=== PATIENT | male | born 1950 | race Caucasian/White ===

== ENCOUNTER 2022-08-14 18:44 | Inpatient (IN) | payer OTHER, MEDICARE ==
[~2022-08-14] VITALS: Ht 175.3 cm; Wt 76.2 kg
[2022-08-14 19:22] VITALS: BP_SYST 132
--- NOTE | 2022-08-14 19:55 | NUR ---
Placed in room 02 . Placed on weight loss consultant, blood pressure machine and pulse oximeter. To gown for exam. Side rails up. Report given to BALJIT SHARMA.
--- NOTE | 2022-08-14 19:58 | NUR ---
Received pt in be 2, A&OX4, NAD. C/o of flank pain, pt reported to have multiple kidney stones.
--- NOTE | 2022-08-14 19:59 | NUR ---
ER Dr. Bourne at bedside examining patient.
[2022-08-14 20:40] LABS: BASOPHILS % (AUTO) 0.5 % (0.0-2.0); EOSINOPHILS # (AUTO) 0.3 K/uL (0.0-0.4); EOSINOPHILS % (AUTO) 2.6 % (0.0-4.0); HEMOGLOBIN 12.8 g/dL (14.0-18.0); LYMPHOCYTES # (AUTO) 2.3 K/uL (1.0-5.5); LYMPHOCYTES % (AUTO) 22.7 % (20.5-51.5); MEAN CORPUSCULAR HEMOGLOBIN 31 pg (27-31); MEAN CORPUSCULAR HGB CONC 34 % (32-36); MEAN CORPUSCULAR VOLUME 90 fL (79.0-98.0); MONOCYTES # (AUTO) 0.7 K/uL (0.0-1.0); MONOCYTES % (AUTO) 6.9 % (1.7-9.3); NEUTROPHILS % (AUTO) 67.3 % (40.0-70.0); PLATELET COUNT (AUTO) 224 K/uL (130-430); RED CELL DISTRIBUTION WIDTH 14.5 % (9.0-15.0); WHITE BLOOD COUNT (AUTO) 10.3 K/uL (4.8-10.8)
[2022-08-14 20:41] LABS: CALCIUM 8.7 mg/dL (8.4-11.0); CREATININE 2.13 mg/dL (0.55-1.30)
[2022-08-14 20:54] LABS: ALBUMIN 3.8 g/dL (3.4-4.8); TOTAL BILIRUBIN 0.4 mg/dL (0.0-1.0)
[2022-08-14 21:23] LABS: BILIRUBIN,URINE NEGATIVE (NEGATIVE); BLOOD, URINE NEGATIVE (NEGATIVE); CLARITY/URINE CLEAR (CLEAR); COLOR,URINE YELLOW (YELLOW); GLUCOSE,URINE NEGATIVE (NEGATIVE); KETONES,URINE NEGATIVE (NEGATIVE); LEUKOCYTE ESTERASE ,URINE NEGATIVE (NEGATIVE); NITRITE, URINE NEGATIVE (NEGATIVE); PH,URINE 5.5 (5.0-8.0); PROTEIN URINE NEGATIVE (NEGATIVE); UROBILINOGEN,URINE 0.2 (0.2-1.0)
--- NOTE | 2022-08-14 22:12 | NUR ---
Admit bed requested Patient will be admitted to care of . Admitted to MED SURG unit. Diagnosis : RENAL KIDNEY STONES & HYDRONEPHROSIS Inpatient :Yes Observation : No Orientation concerns or request close to nursing station : No Covid Status : PND On vent or bipap : NO Isolation requirements : NO Needs a sitter :NO From Home : Yes Requires Dialysis :No Med Rec Completed : PND
--- NOTE | 2022-08-14 22:14 | NUR ---
COVID AND FLU SWABBED AND SENT TO LAB
[2022-08-14] MEDS ORDERED: ONDANSETRON HCL 4 MG/2 ML VIAL IVP PRN ×2 (22:15→23:45)
[2022-08-14] MEDS ORDERED: MORPHINE 4 MG INJ. 4 MG/ML VIAL IVP ONE (22:15)
[2022-08-14] MEDS ORDERED: INSULIN REGULAR, HUMAN 100 UNITS/ML, 3 ML VIAL (humuLIN R) SUBCUT PRN ×2 (22:15→23:45)
[2022-08-14] MEDS ORDERED: TAMSULOSIN HCL 0.4 MG CAP PO ONE (22:15)
[2022-08-14] MEDS ORDERED: MORPHINE 4 MG INJ. 4 MG/ML VIAL IVP PRN ×2 (22:15→23:45)
[2022-08-14] MEDS ORDERED: ONDANSETRON HCL 4 MG/2 ML VIAL IVP ONE (22:15)
[2022-08-14] MEDS ORDERED: NACL 0.9% 1,000 ML IV ONE (22:15)
[2022-08-14] MEDS ORDERED: LOSA100T4 PO (22:53)
[2022-08-14] MEDS ORDERED: ASA81 PO (22:53)
[2022-08-14] MEDS ORDERED: DOXA4TAB3 PO (22:53)
[2022-08-14] MEDS ORDERED: LEVO75CA5 PO (22:53)
[2022-08-14] MEDS ORDERED: ASCO500T20 PO (22:53)
[2022-08-14] MEDS ORDERED: METO-442 PO (22:53)
[2022-08-14] MEDS ORDERED: RABE20TA18 PO (22:53)
[2022-08-14] MEDS ORDERED: SITA100T11 PO (22:53)
[2022-08-14] MEDS ORDERED: VITA400T9 PO (22:53)
[2022-08-14] MEDS ORDERED: ICOS1CAP PO (22:53)
[2022-08-14] MEDS ORDERED: MONT-47 PO (22:53)
[2022-08-14] MEDS ORDERED: VALA500T PO (22:53)
[2022-08-14] MEDS ORDERED: ZINC100T2 PO (22:53)
[2022-08-14] MEDS ORDERED: LIP10 PO (22:53)
[2022-08-14] MEDS ORDERED: VITD400 PO (22:53)
[2022-08-14] MEDS ORDERED: CLOP75TA32 PO (22:53)
--- NOTE | 2022-08-14 22:53 | NUR ---
MED REC COMPLETED, INFORMATION PROVIDED BY FAMILY.
--- NOTE | 2022-08-14 23:12 | NUR ---
COVID RESULT= NEGATIVE
[2022-08-14] MEDS ORDERED: NACL 0.9% 1,000 ML IV SCH (23:30)
--- NOTE | 2022-08-14 23:36 | NUR ---
Patient will be admitted to care of Dr. Thompson. Admitted to MS unit. Will go to room 100 A. Belongings list completed. Complete and up to date summary report printed. SBAR report to be given at bedside BALJIT Sweet with opportunity for questions.
[2022-08-14] MEDS ORDERED: ACETAMINOPHEN 325 MG TABLET PO PRN (23:45)
[2022-08-14] MEDS ORDERED: MORPHINE 2 MG/ML INJ. SYRINGE IVP PRN (23:45)
[2022-08-14] MEDS ORDERED: NALOXONE HCL 0.4 MG/ML AMP (NARCAN) IVP PRN (23:45)
--- NOTE | 2022-08-14 23:45 | NUR ---
ADMISSION NOTE Received patient from ER via gurney. Patient admitted with diagnosis of renal kidney and hydronephrosis. Patient is awake, alert, oriented X4. Pt denies any chest pain,pain,sob,or any acute distress. IV site patent of LAC, flushed well w/ NS. Patient oriented to hospital room, call light, toileting, pain management and safety-teach back done. Patient informed that I (Maddi) will be his nurse and that their room number is 100-B. Personal belongings checked and Belongings List documented. Call light within reach.
[2022-08-15 00:02] VITALS: BP_SYST 151
[2022-08-15 00:09] VITALS: BP_SYST 151
[2022-08-15] MEDS ORDERED: cefTRIAXone 1 GM in D5W 50 ML IV SCH (01:00)
[2022-08-15] MEDS ORDERED: cefTRIAXone 1 GM IVPB PREMIX 50 ML IV ONE (01:44)
[2022-08-15] MEDS: 0.45% NACL 1,000 ML IV SCH ×2 (01:47→10:08)
[2022-08-15 06:35] LABS: ALBUMIN 2.9 g/dL (3.4-4.8); CALCIUM 7.9 mg/dL (8.4-11.0); CREATININE 2.06 mg/dL (0.55-1.30); FREE T4 (FREE THYROXINE) 0.9 ng/dL (0.6-1.6); THYROID STIMULATING HORMONE 4.38 uIu/mL (0.34-4.82); TOTAL BILIRUBIN 0.4 mg/dL (0.0-1.0)
--- NOTE | 2022-08-15 06:45 | NUR ---
CLOSING NOTES; -Pt awakes, resting in bed comfortably. Pt denies any chest pain,pain,sob,or any acute distress. Pt's condition stable. Call light w/in reach. Will endorse to next nurse to cont care.
--- NOTE | 2022-08-15 06:50 | NUR ---
NOTES; PAGED Saleem CHAND CONSULT REGARDING RENAL KIDNEY STONE/HYDRONEPHROSIS [phone], NO ANSWER LEFT MSG TO CALLBACK, WILL ENDORSE TO DAY SHIFT NURSE TO FOLLOW UP IF MD DOESN'T RETURN CALLBACK.
[2022-08-15] MEDS ORDERED: LEVOTHYROXINE SODIUM 0.075 MG TABLET PO SCH (07:00)
[2022-08-15 07:54] LABS: BASOPHILS % (AUTO) 0.5 % (0.0-2.0); EOSINOPHILS # (AUTO) 0.3 K/uL (0.0-0.4); EOSINOPHILS % (AUTO) 4.1 % (0.0-4.0); HEMATOCRIT 33.9 % (36-54); HEMOGLOBIN 11.5 g/dL (14.0-18.0); MEAN CORPUSCULAR HEMOGLOBIN 31 pg (27-31); MEAN CORPUSCULAR HGB CONC 34 % (32-36); MEAN CORPUSCULAR VOLUME 91 fL (79.0-98.0); MONOCYTES # (AUTO) 0.5 K/uL (0.0-1.0); MONOCYTES % (AUTO) 7.6 % (1.7-9.3); NEUTROPHILS % (AUTO) 58.8 % (40.0-70.0); PLATELET COUNT (AUTO) 189 K/uL (130-430); RED BLOOD CELL COUNT(AUTO) 3.74 MIL/uL (4.2-6.2); RED CELL DISTRIBUTION WIDTH 14.3 % (9.0-15.0)
[2022-08-15] MEDS ORDERED: MONTELUKAST 10 MG TABLET PO SCH (09:00)
[2022-08-15] MEDS ORDERED: PANTOPRAZOLE SODIUM 40 MG TAB PO SCH (09:00)
[2022-08-15] MEDS ORDERED: ASPIRIN 81 MG TAB.CHEW PO SCH (09:00)
[2022-08-15] MEDS ORDERED: CHOLECALCIFEROL (VITAMIN D-3) 400 UNIT TABLET PO SCH (09:00)
[2022-08-15] MEDS ORDERED: valACYclovir HCL 500 MG TABLET PO SCH (09:00)
[2022-08-15] MEDS ORDERED: ATORVASTATIN 10 MG TABLET PO SCH (09:00)
[2022-08-15] MEDS ORDERED: DOXAZOSIN MESYLATE 2 MG TABLET PO SCH (09:00)
[2022-08-15] MEDS ORDERED: TAMSULOSIN HCL 0.4 MG CAP PO SCH (09:00)
[2022-08-15] MEDS ORDERED: ASCORBIC ACID 500 MG TABLET PO SCH (09:00)
[2022-08-15 09:26] LABS: WHITE BLOOD COUNT (AUTO) 6.8 K/uL (4.8-10.8)
[2022-08-15 09:28] VITALS: BP_SYST 135
--- NOTE | 2022-08-15 10:25 | NUR ---
dr merino urologist dr merino called . informed for consult for kidney stone /hydronephrosis. ct abd report verbally given to dr merino. dr merino stated pt can be discharge and pt has to follow up as out pt. we will notify dr mohan
[2022-08-15 11:30] VITALS: BP_SYST 146
[2022-08-15] MEDS ORDERED: TAMS0.4C96 PO (16:17)
[2022-08-15 17:16] VITALS: BP_SYST 142
[2022-08-15] MEDS ORDERED: METOPROLOL TARTRATE 50 MG TABLET PO SCH (21:00)
== END 2022-08-15 18:00 | disposition home or self-care (01) | DRG 694 ==
LOC: SED 18:44 → SMU 22:05
PROVIDERS: ADMIT Internal Medicine; ATTEND Internal Medicine
DX: N13.2 Hydronephrosis with renal and ureteral calculous obstruction (principal); I25.10 Atherosclerotic heart disease of native coronary artery without angina pectoris; N17.9 Acute kidney failure, unspecified; I10 Essential (primary) hypertension; E11.9 Type 2 diabetes mellitus without complications; N40.0 Benign prostatic hyperplasia without lower urinary tract symptoms; E03.9 Hypothyroidism, unspecified; Z20.822 Contact with and (suspected) exposure to COVID-19; E78.5 Hyperlipidemia, unspecified; Z87.442 Personal history of urinary calculi; Z79.82 Long term (current) use of aspirin; Z79.899 Other long term (current) drug therapy
CPT/HCPCS: 36415; 76376; 76770; 80053; 81003; 83037; 83690; 84100; 84439; 84443; 85025; 96361; 96374; 96375; 99285; J0696; J2270; J2405; J7060